=== PATIENT | female | born 2000 | race Caucasian/White ===

== ENCOUNTER 2021-07-26 10:48 | Emergency (ER) | payer OTHER, SELFPAY ==
[2021-07-26] VITALS (9 sets, daily range): BP systolic 148–164; BP diastolic 76–130; PULSE 70–113; RESP 12–20; TEMP 36.7; O2SAT 99–100
--- NOTE | ~2021-07-26 | CT_ITS ---
EXAMINATION: CT brain wo con EXAM DATE: 07/26/2021 11:46 INDICATION: optic nerve swelling with blindness. Complete loss of vision. Had blurry vision yesterday . TECHNIQUE: Spiral CT of the head was performed without contrast. Axial, coronal and sagittal images were reviewed. The dose-length product (DLP) for this examination was 605.33 mGy-cm. The exposure w as tailored according to patient size, and iterative reconstruction (ASIR) was used as additional dos e reduction technique. There is no prior study for comparison. FINDINGS: There is no acute intraparenchymal hemorrhage. No evidence of intraparenchymal brain mass lesion. No evidence of acute infarction. There is no mass effect or midline shift. The ventricles are normal in size. There are no extra-axial collections. There are no acute calvarial fractures. T he orbits and optic nerves are unremarkable. Pituitary gland normal in size, no evidence of CSF herni ation/empty sella. Soft tissue is unremarkable. Moderate right frontal, mild to moderate ethmoid and maxillary sinus mucoperiosteal thickening. Mastoid air cells are well aerated. IMPRESSION: 1. Unremarkable brain, orbits, optic nerves. Reviewed, dictated and finalized at location A.
[2021-07-26 12:03] LABS: Basophils Absolute Auto 0.1 K/mm3 (0.0-0.1); Basophils Percent Auto 0.5 % (0.2-1.2); Eosinophils Percent Auto 0.2 % (0-4.4); Hematocrit 39.1 % (37.0-47.0); Hemoglobin 11.8 g/dL (12.0-15.0); Immature Granulocyte Absolute 0.05 K/mm3 (0.00-0.031); Immature Granulocyte Percent A 0.5 % (0-0.5); Lymphocytes Absolute Auto 1.53 K/mm3 (0.9-3.2); Mean Corpuscular HGB Conc 30.2 g/dl (32-36); Mean Corpuscular Hemoglobin 21.7 pg (26-34); Mean Corpuscular Volume 71.7 fl (80-100); Mean Platelet Volume 8.5 fl (7.4-10.4); Monocytes Absolute Auto 0.7 K/mm3 (0.1-0.6); Monocytes Percent Auto 6.6 % (2.6-8.5); Neutrophils Absolute Auto 8.6 K/mm3 (1.3-6.7); Neutrophils Percent Auto 78.2 % (45.5-73.1); Platelet Count Result 429 k/mm3 (150-375); Red Blood Count 5.45 M/mm3 (4.2-5.4); Red Cell Distribution Width 17.6 % (11.5-14.5); White Blood Count 10.9 K/mm3 (4.5-10.0)
[2021-07-26 12:15] LABS: Anion Gap 9 mmol/L (8-16); Blood Urea Nitrogen 14 mg/dL (7-17); Calcium 9.9 mg/dL (8.4-10.2); Carbon Dioxide 25 mmol/L (22-30); Chloride 105 mmol/L (98-107); Estimated CRCL calculation 181 ml/min; Estimated Glomerular Filt Rate > 60; Glucose 121 mg/dL (65-110); Potassium 3.8 mmol/L (3.4-5.0); Sodium 139 mmol/L (137-145)
--- NOTE | 2021-07-26 12:20 | ED.EYEPROB ---
HPI - Eye Problem General Chief complaint: Eye Problems Stated complaint: vision problem Time Seen by Provider: 07/26/21 11:10 History of Present Illness HPI Narrative: Patient is a 21-year-old female who presents ER with blindness. She reports she woke up this morning and could barely sense light and now has complete loss of sensation of light. No flashers or floaters. Reports 2 days prior to this she had some mild headache with blurred vision that she did not think much of. Today she went to see an welfare interviewer after losing her vision. The welfare interviewer was able to image the back of her eye and referred the patient to go immediately to the emergency room. Dr. Arrieta the residential property consultant reports that the patient had severe optic nerve head swelling with surrounding hemorrhage. She does not think there is any retinal detachment. She is concerned there could be an obstructive process or mass lesion in the brain. Related Data Allergies Allergy/AdvReac Type Severity Reaction Status Date / Time No Known Allergies Allergy Unverified 07/26/21 11:04 Review of Systems Review of Systems: All systems reviewed & are unremarkable except as noted in HPI and below Constitutional: Constitutional: Denies chills, Denies fever(s) and Denies weakness Eyes: Eyes: Reports change in vision and Denies photophobia ENT: Denies nasal congestion and Denies sore throat Neurologic: Denies dizziness, Reports headache(s), Denies focal weakness and Denies numbness PMFSH Past Medical History Medical History (Updated 07/26/21 @ 14:08 by Cuong Mcrae MD) Hypothyroidism Prediabetes Surgical History Surgical History (Updated 07/26/21 @ 12:26 by Cuong Mcrae MD) No history of previous surgery Social History Social History (Updated 07/26/21 @ 12:26 by Cuong Mcrae MD) Smoking status: Never smoker Exam Narrative: GENERAL: Well-appearing, obese, and in no acute distress. HEAD: Normocephalic, atraumatic. EYES: Pupils are equal and mid dilated. They are not responsive to light. She is unable to perform extraocular movements properly due to the fact she cannot see it to track the finger. Prominent optic disc bilaterally. Right eye pressure 20 mmHg, left eye pressure 18 mmHg. ENT: Mucous membranes moist. CHEST: Clear to auscultation. No respiratory distress. HEART: Regular rate and rhythm. Normal peripheral pulses. EXTREMITIES: Normal range of motion. No edema. SKIN: Warm, dry, no rash. NEURO: Alert and oriented x3. PSYCH: Normal mood and affect. Course Reevaluation(s) Reevaluation #1: Attempting second phone call to [facility]. Date: 07/26/21 Time: 13:00 Reevaluation #2: Contacted [facility]. Discussed case with ophthalmology Dr. Zaldivar, he recommends transfer to tertiary care center for further treatment evaluation and to obtain MRI of patient's brain. Patient's been accepted to the [facility] emergency department by Dr. Mcdonnell. Patient and mother do not want to wait for an ambulance for transfer and instead will go by private vehicle. I feel comfortable with this as patient is medically stable. Date: 07/26/21 Time: 14:06 Vital Signs Vital signs: Vital Signs Temperature 98.0 F 07/26/21 11:00 Pulse Rate 113 H 07/26/21 11:00 Respiratory Rate 20 07/26/21 11:00 Blood Pressure 164/110 H 07/26/21 11:00 Pulse Oximetry 100 07/26/21 11:00 Temperature 98.0 F 07/26/21 11:00 Pulse Rate 94 07/26/21 12:00 Respiratory Rate 20 07/26/21 12:00 Blood Pressure 162/130 H 07/26/21 11:31 Pulse Oximetry 100 07/26/21 12:00 MDM - Eye Problem Lab Data Result diagrams: 07/26/21 11:58 07/26/21 11:58 Labs: Lab Results 07/26/21 07/26/21 Range/Units 11:58 11:58 WBC 10.9 H (4.5-10.0) K/mm3 RBC 5.45 H (4.2-5.4) M/mm3 Hgb 11.8 L (12.0-15.0) g/dL Hct 39.1 (37.0-47.0) % MCV 71.7 L (80-100) fl MCH 21.7 L (26-34) pg MCHC 30.2
--- NOTE | 2021-07-26 14:02 | PC.NURSE ---
report called to katherin gonzalez at [facility] er. awaiting ems transfer
--- NOTE | 2021-07-26 14:16 | PC.NURSE ---
patients family decided no to wait for ems due to a long eta. patient went to [facility] via private car with her parents. patient told to stay npo and to go directly to [facility] er without making any stops
== END 2021-07-26 14:22 | disposition short-term general hospital (02) ==
PROVIDERS: Emergency Provider Emergency Medicine; PCP Physician Assistant
DX: H54.7 Unspecified visual loss (principal); E03.9 Hypothyroidism, unspecified; R73.03 Prediabetes
CPT/HCPCS: 36415; 70450; 80048; 85025; 99284; A9270

== ENCOUNTER 2024-03-04 18:29 | Emergency (ER) | payer OTHER, SELFPAY ==
--- NOTE | ~2024-03-04 | XR_ITS ---
XR chest 2V Ordering provider: Cuong Mcrae MD History: 24 years Female with . chest pain . Comparison: None. FINDINGS: MEDIASTINUM: The cardiac silhouette is not enlarged. LUNGS: No infiltrates, effusions or pneumothorax. Slightly prominent markings in the left lung base. OTHER: No free air under the diaphragm. IMPRESSION: No acute cardiopulmonary pathology. Reviewed, dictated and finalized at location A.
--- NOTE | ~2024-03-04 | CT_ITS ---
CTA chest PE protocol Ordering provider: Jaxon Jara MD History: 24 years Female with . Left sided chest pain, profound tachycardia . Comparison: None. Technique: CT angiogram chest was performed following timed intravenous injection of contrast. Thin s lice axial images and reformatted coronal images were obtained. Three dimensional reformatted images of the chest were also obtained using a [employer] workstation. Radiation reduction technique utilized. [id number]. Findings: PULMONARY ARTERIES: No pulmonary embolus. VISUALIZED THORACIC INLET: Normal. MEDIASTINUM: Aorta/coronary arteries: Normal aorta.. Heart/other: The heart is not enlarged. Lymph nodes: No mediastinal or hilar adenopathy. LUNGS: Left basilar atelectasis with minimal effusion. Patchy opacities in the right lower lobe suggestive o f pneumonitis. No pulmonary nodules or masses. No pneumothorax. VISUALIZED UPPER ABDOMEN: the visualized upper abdomen is normal. MUSCULOSKELETAL: Soft tissues: The superficial soft tissues are normal. Bones: Normal spine. IMPRESSION: 1. Atelectasis with minimal effusion the left lung base. 2. Patchy opacities in the right lower lobe area suggestive of pneumonia. Follow-up advised. 3. No definite pulmonary embolus Reviewed, dictated and finalized at location A. IMPRESSION: 1. Atelectasis with minimal effusion the left lung base. 2. Patchy opacities in the right lower lobe area suggestive of pneumonia. Foll ow-up advised. 3. No definite pulmonary embolus
--- NOTE | 2024-03-04 18:37 | ECG_ITS ---
Test Date: 2024-03-04 18:42:11 Measurements Intervals [place] Rate: 125 P: 36 AK: 160 QRS: -1 QRSD: 88 T: 10 QT: 413 QTc: 596 Interpretive Statements SINUS TACHYCARDIA VOLTAGE CRITERIA FOR LVH [MEETS CRITERIA IN ONE OF: R(aVL), S(V1), R(V5), R(V5/V6)+S(V1)] POSSIBLE ANTERIOR MYOCARDIAL INFARCTION , OF INDETERMINATE AGE [30 ms Q WAVE IN V3/V4, OR R < 0.2 mV IN V4] No previous ECG available for comparison Electronically Signed On 03-06-2024 12:51:30 CDT by Christopher Harrington M.D.
[2024-03-04 18:38] VITALS: BP 175/97; PULSE 138; RESP 20; TEMP 36.3; O2SAT 99
[2024-03-04 19:02] LABS: Basophils Absolute Auto 0.1 K/mm3 (0.0-0.1); Basophils Percent Auto 0.4 % (0.2-1.2); Eosinophils Absolute Auto 0.1 K/mm3 (0-0.3); Hematocrit 33.3 % (37.0-47.0); Hemoglobin 9.1 g/dL (12.0-15.0); Immature Granulocyte Absolute 0.06 K/mm3 (0.00-0.031); Immature Granulocyte Percent A 0.4 % (0-0.5); Lymphocytes Absolute Auto 1.49 K/mm3 (0.9-3.2); Lymphocytes Percent Auto 10.9 % (18.3-44.2); Mean Corpuscular HGB Conc 27.3 g/dl (32-36); Mean Corpuscular Hemoglobin 16.7 pg (26-34); Mean Corpuscular Volume 61.2 fl (80-100); Mean Platelet Volume 8.5 fl (7.4-10.4); Monocytes Percent Auto 7.5 % (2.6-8.5); Neutrophils Absolute Auto 10.9 K/mm3 (1.3-6.7); Neutrophils Percent Auto 79.8 % (45.5-73.1); Platelet Count Result 594 k/mm3 (150-375); Red Blood Count 5.44 M/mm3 (4.2-5.4); White Blood Count 13.7 K/mm3 (4.5-10.0)
[2024-03-04 19:10] LABS: INR 1.1; Prothrombin Time 14.8 Seconds (11.1-14.7)
[2024-03-04 19:11] LABS: Partial Thromboplastin Time 41.3 Seconds (22.3-36.8)
[2024-03-04 19:16] LABS: Alanine Aminotransferase 20 U/L (6-35); Albumin Level 4.6 g/dL (3.5-5.1); Alkaline Phosphatase 122 U/L (38-126); Anion Gap 11 mmol/L (4-12); Aspartate Amino Transferase 19 U/L (14-36); Bilirubin,Total 0.5 mg/dL (0.2-1.3); Blood Urea Nitrogen 10 mg/dL (7-17); Calcium 9.4 mg/dL (8.4-10.2); Carbon Dioxide 25 mmol/L (22-30); Chloride 102 mmol/L (98-107); Estimated CRCL calculation 166 ml/min; Estimated Glomerular Filt Rate > 60; Glucose 158 mg/dL (65-110); Lipase 36 U/L (23-300); Sodium 138 mmol/L (137-145)
[2024-03-04 19:24] LABS: Platelet Estimate Increased (Adequate)
[2024-03-04 19:25] LABS: Microcytosis 1+ (NORMAL); Schistocytes None Seen
[2024-03-04 19:26] LABS: Anisocytosis 3+; Hypochromasia 1+
[2024-03-04] MEDS: SODIUM CHLORIDE 0.9% IV 2,000 ML 999 ML IV CONT (19:28)
--- NOTE | 2024-03-04 19:32 | ED.GENADULT ---
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 Patient had a cough 2 weeks ago. Her cough and symptoms improved but then she developed chest pain over the left side of her chest and underneath her left breast. It is nonradiating, heavy, 5/10 in intensity and comes and goes. She has never had pain like this before. It is worse when she lays flat and improves when she leans forward. She still has a dry cough but denies fevers chills shortness of breath,lower extremity edema or abdominal pain. Related Data Allergies Allergy/AdvReac Type Severity Reaction Status Date / Time No Known Allergies Allergy Unverified 07/26/21 11:04 [facility] Past Medical History Medical History Hypothyroidism Myelin oligodendrocyte glycoprotein antibody disease Prediabetes Surgical History Surgical History No history of previous surgery Social History Social History Smoking status: Never smoker Exam Narrative: APPEARANCE: No apparent distress, well-appearing Head: atraumatic. EYES: EOMI, NOSE: Atraumatic NECK: Trachea midline RESPIRATORY: No increased rate of breathing, clear to auscultation, speaking in full sentences CARDIOVASCULAR: tachycardic, no peripheral edema ABDOMINAL: Non-distended soft nontender MUSCULOSKELETAl: No obvious deformities NEURO: Alert. Moving 4/4 extremities SKIN:: Warm, dry. Normal color PSYCHIATRIC: Normal affect Course Vital Signs Vital signs: Vital Signs Temperature 97.4 F L 03/04/24 18:38 Pulse Rate 138 H 03/04/24 18:38 Respiratory Rate 20 03/04/24 18:38 Blood Pressure 175/97 H 03/04/24 18:38 Pulse Oximetry 99 03/04/24 18:38 Oxygen Delivery Room Air 03/04/24 18:38 Temperature 97.4 F L 03/04/24 18:38 Pulse Rate 119 H 03/04/24 22:38 Respiratory Rate 20 03/04/24 22:38 Blood Pressure 129/89 03/04/24 22:38 Pulse Oximetry 100 03/04/24 22:38 Oxygen Delivery Room Air 03/04/24 19:43 Medical Decision Making 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 Patient tachycardic on arrival and given fluid resuscitation. Workup significant for white count of 13.7. Her CT showed some left-sided atelectasis with minor effusion and some very mild infiltrates in the right lobe. No evidence of PE. Patient received Toradol and Tylenol with complete resolution of her pain. Incidentally she was found to be anemic with a hemoglobin of 9.1 and MCV of 61. Patient notes that she has very heavy menses. patient was persistently tachycardic despite fluid resuscitation and pain medications. Patient admits to being very anxious about her health due to previous hospitalization with MOG. Despite being tachycardic the patient is very well-appearing and no longer has any symptoms. She has been up and ambulating in the emergency department without difficulty. I discussed admission versus discharge the patient declined admission. She will follow-up closely with her primary care physician on Thursday. She will be given antibiotics to cover for pneumonia and she had some very mild infiltrates on CT and white count 13.7. Given strict return precautions. 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
[2024-03-04 19:36] LABS: Troponin I < 0.012 ng/mL (0.000-0.034)
[2024-03-04 19:43] VITALS: O2SAT 98
[2024-03-04 20:40] VITALS: BP 130/82; PULSE 113; RESP 18; O2SAT 100
[2024-03-04 20:55] LABS: Immature Reticulocyte Fraction 25.8 % (3.0-15.9); Reticulocyte Hemoglobin Conten 16.9 pg (28.2-36.6); Reticulocyte Percent 1.42 % (0.7-4.3); Reticulocytes Absolute 0.08 10^6/uL (0.02-0.10)
[2024-03-04 20:58] LABS: Iron 19 ug/dL (37-170)
[2024-03-04 21:09] LABS: Percent Iron Saturation 5 % (20-50)
[2024-03-04 21:09] LABS: Bilirubin,Total 0.4 mg/dL (0.2-1.3); Lactate Dehydrogenase 168 U/L (120-246)
[2024-03-04 21:10] LABS: NT Pro B Type Natriuretic Pept 48 pg/mL (19.9-100)
[2024-03-04 21:16] LABS: Transferrin 255 mg/dL (206-381)
[2024-03-04] MEDS: ACETAMINOPHEN 500 MG TABLET 1000 MG PO (21:55)
[2024-03-04] MEDS: KETOROLAC 15 MG/ML VIAL (*BKC) IV PUSH (21:55)
[2024-03-04] MEDS: SODIUM CHLORIDE 0.9% IV 1,000 ML 999 ML IV CONT (21:55)
[2024-03-04 22:16] LABS: Folic Acid 4.3 ng/mL (2.76->20)
[2024-03-04] MEDS: AMOXICILLIN/CLAVULANATE K 875-125 MG TAB 1 TABLET PO (22:36)
[2024-03-04] MEDS: DOXYCYCLINE HYCLATE 100 MG TABLET PO (22:36)
[2024-03-04 22:38] VITALS: BP 129/89; PULSE 119; RESP 20; O2SAT 100
--- NOTE | 2024-03-04 22:58 | PC.NURSE ---
Report received from MARIA ESTHER Sloan. Assumed care of patient at this time.
[2024-03-04 22:59] LABS: Troponin I < 0.012 ng/mL (0.000-0.034)
[2024-03-07 12:24] LABS: Haptoglobin 208 mg/dL (43-212)
[2024-03-11 15:18] LABS: Soluble Transferrin Receptor 4.62 mg/L (0.76-1.76)
== END 2024-03-04 23:33 | disposition home or self-care (01) ==
PROVIDERS: Emergency Medicine; Emergency Provider Emergency Medicine; PCP Physician Assistant
DX: R09.1 Pleurisy (principal); D50.9 Iron deficiency anemia, unspecified; R00.0 Tachycardia, unspecified; E03.9 Hypothyroidism, unspecified; R73.03 Prediabetes; G37.81 Myelin oligodendrocyte glycoprotein antibody disease
CPT/HCPCS: 36415; 71046; 71275; 80053; 81025; 82247; 82248; 82607; 82728; 82746; 83010; 83540; 83550; 83615; 83690; 83880; 84238; 84443; 84466; 84484; 85025; 85046; 85610; 85730; 86880; 93005; 96361; 96374; 99284; A9270; J1885; J7030; Q9967

== ENCOUNTER 2024-03-17 09:28 | Outpatient (CLI) | payer OTHER, SELFPAY ==
--- NOTE | ~2024-03-17 | XR_ITS ---
XR chest 2V Ordering provider: Shannan Rosenbaum, FAWN History: 24 years Female with . PNEUMONIA . Comparison: March 04, 2024 FINDINGS: MEDIASTINUM: The cardiac silhouette is not enlarged. LUNGS: No infiltrates, effusions or pneumothorax. Prominent markings bilaterally with minimal opacification in the right lung base. OTHER: No free air under the diaphragm. IMPRESSION: Prominent markings in the right lung base with early pneumonia. Follow-up advised. Reviewed, dictated and finalized at location A. IMPRESSION: Prominent markings in the right lung base with early pneumonia. Follow-up advi sed.
== END 2024-03-17 09:29 | disposition home or self-care (01) ==
LOC: ANHIMG 09:31
PROVIDERS: PCP Physician Assistant; Visit Provider Physician Assistant
DX: J18.9 Pneumonia, unspecified organism (principal)
CPT/HCPCS: 71046

== ENCOUNTER 2024-03-30 08:38 | Outpatient (CLI) | payer OTHER, SELFPAY ==
--- NOTE | ~2024-03-30 | XR_ITS ---
Clinical Indication: Pneumonia PA and lateral views of the chest: Comparison: 03/17/2024 Findings: The lungs are clear, without evidence of focal consolidation or pleural effusion. Cardiome diastinal silhouette is within normal limits. Bones and soft tissues are unremarkable. Impression: Normal chest. Reviewed, dictated and finalized at location . Impression: Normal chest.
== END 2024-03-30 08:39 | disposition home or self-care (01) ==
PROVIDERS: PCP Physician Assistant; Visit Provider Physician Assistant
DX: J18.9 Pneumonia, unspecified organism (principal)
CPT/HCPCS: 71046